=== PATIENT | female | born 1980 | race Caucasian/White ===

== ENCOUNTER 2016-06-06 14:10 | Emergency (ER) | payer OTHER ==
[~2016-06-06] VITALS: Ht 165.1 cm; Wt 74.6 kg
[2016-06-06] MEDS ORDERED: SODIUM CHLORIDE FLUSH 3 ML SYR IV PRN (15:00)
[2016-06-06] MEDS ORDERED: ONDANSETRON 2 MG/ML (Z0FRAN) 2 ML VIAL IV ONE (15:00)
[2016-06-06] MEDS ORDERED: SODIUM CHLORIDE FLUSH 10 ML SYR IV PRN (15:00)
--- NOTE | 2016-06-06 15:06 | NUR ---
STAFF AND VISITORS WAIT IN [place] AGAIN (FOR 2ND TIME) PT HAS TO GO TO TOILET TO HAVE LOOSE STOOL.
[2016-06-06 15:18] LABS: MEAN CORPUSCULAR HEMOGLOBIN 29.1 PG (26.0-34.0); MEAN CORPUSCULAR HGB CONC 33.8 g/dL (31.0-37.0); MEAN CORPUSCULAR VOLUME 86 FL (80-100); MEAN PLATELET VOLUME 9.7 FL (6.0-9.5); PLATELET COUNT 217 10^3uL (150-450); WHITE BLOOD COUNT 8.92 10^3uL (4.0-11.0)
[2016-06-06] MEDS ORDERED: DIPHENOXYLATE/ATROPINE 2.5MG/0.025MG (LOMOTIL) TAB PO ONE (15:20)
[2016-06-06 15:30] LABS: CALCULATED IONIZED CALCIUM 3.7 mg/dL (3.8-4.6); TOTAL PROTEIN 7.6 g/dL (6.4-8.5)
[2016-06-06 15:34] LABS: BAND NEUTROPHILS % 2 % (0-6); EOSINOPHILS % 1 % (0-4); LYMPHOCYTES # 1.6 #; MONOCYTES # 1.1 #; MONOCYTES % 14 % (3-11); RBC MORPH NORMAL (NORMAL); SEGMENTED NEUTROPHILS % 64 % (51-67); TOTAL CELLS COUNTED 100
[2016-06-06 15:44] LABS: BILIRUBIN,URINE Negative (Negative); COLOR,URINE Yellow; GLUCOSE, URINE (UA) Negative (Negative); LEUKOCYTE ESTERASE ,URINE Trace (Negative); PH,URINE 5.5 (5.0 - 8.0); UROBILINOGEN,URINE 0.2 mg/dL (0.2-1.0)
[2016-06-06 15:48] LABS: CLARITY,URINE Slightly Cloudy
[2016-06-06 15:51] LABS: URINE CENTRIFUGED VOLUME <10mL Unspun
[2016-06-06 15:52] LABS: RBC,URINE None Seen /HPF
--- NOTE | 2016-06-06 15:52 | NUR ---
PATIENT DENIES ANY NAUSEA FOR PAST SEVERAL MINUTES AND SAYS SHE FEELS LIKE SHE COULD TAKE HER ORDERED DOSE OF LOMOTIL NOW. PATIENT SWALLOWS TABS WITHOUT PROBLEM AND WITH MINIMAL AMOUNT OF WATER. PT NODS HEAD TO INDICATE UNDERSTANDING OF INSTRUCTION TO CONTINUE NOT EATING OR DRINKING ANYTHING NOT PROVIDED TO HER BY STAFF.
[2016-06-06 17:07] VITALS: BP 94/59
== END 2016-06-06 17:06 | disposition home or self-care (01) ==
LOC: ED 14:14
DX: K52.9 Noninfective gastroenteritis and colitis, unspecified (principal)
CPT/HCPCS: 36415; 80053; 81003; 81015; 83690; 85025; 87088; 96361; 96374; 99283; J2405; J7030